=== PATIENT | male | born 1950 | race Caucasian/White ===

== ENCOUNTER 2020-04-07 18:20 | Emergency (ER) | payer MEDICARE ==
[~2020-04-07] VITALS: Ht 185.4 cm; Wt 117.3 kg
--- NOTE | 2020-04-07 18:34 | PHYS DOC ---
Past History Past Medical History: CAD, High Cholesterol, Heart Disease Past Surgical History: Angioplasty Past Surgical History STENT x 2 - 10 yrs ago General Adult EDM: Chief Complaint: CHEST PAIN HPI: HPI: ".. I had a pretty good day yesterday... Cutting brush but by the end of the day was having some discomfort in my chest... However today he is awake and with marked discomfort in my chest it is in the center and seems to radiate upwards. Is been going on now for about 15 minutes... It was after I sent cheesecake... At first I thought it might be reflux.... I did take some aspirin. I have had history of coronary artery disease in the past... And had 2 stents placed at [facility] about 10 years ago... And I felt it was probably related to my high cholesterol but I have not really followed up with anybody since then... Pain has been constant the last 20 minutes... Patient is a 69 year old male who presents with above hx and complaints of chest pain. Pain is localized in center chest. There is some radiation to upper chest. Patient rates pain as 8 out of 10. Patient has past medical history of hypertension, hypercholesterol, and has smoked tobacco on occasion- mainly cigars. No history of trauma. No history of pleuritic components to pain. Patient is nauseated with the pain. Patient did have episode of diaphoresis. Patient only follows with [facility] as a primary care. Has not followed with a school photographer since his 2 stents 10 years ago at [facility]. No recent travel. No severe ill contacts. No recent fever or chills. There is family history of cardiac disease both on grandmother's side and grandfather side. There is also a history of Parkinson's with grandfather. Patient does not smoke. Patient does not use alcohol. Patient has had episodes of reflux. No hx of dark stools. Review of Systems: Review of Systems: Constitutional: Denies fever or chills Eyes: Denies change in visual acuity HENT: Denies nasal congestion or sore throat Respiratory: Denies cough or shortness of breath Cardiovascular: Complains of central chest pain GI: Denies abdominal pain, nausea, vomiting, bloody stools or diarrhea : Denies dysuria Musculoskeletal: Denies back pain or joint pain Integument: Denies rash Neurologic: Denies headache, focal weakness or sensory changes Endocrine: Denies polyuria or polydipsia Lymphatic: Denies swollen glands Psychiatric: Denies depression or anxiety Family History: Family History: Coronary artery disease presentation in the 70s both sides of family Current Medications: Current Meds: See nursing for home meds Allergies: Allergies: Allergies Coded Allergies Type Severity Reaction Last Updated Verified No Known Drug Allergies 04/07/20 No Physical Exam: PE: Constitutional: Moderate acute distress, non-toxic appearance. [] HENT: Normocephalic, atraumatic, bilateral external ears normal, oropharynx moist, no oral exudates, nose normal. [] Eyes: PERRLA, EOMI, conjunctiva normal, no discharge. [] Neck: Normal range of motion, no tenderness, supple, no stridor. [] Cardiovascular:Heart rate regular rhythm, no murmur [. PMI slightly to the left Lungs & Thorax: Bilateral breath sounds equal apex on auscultation there are some bilateral basilar crackles Abdomen: Bowel sounds decreased , soft, no tenderness, no masses, no pulsatile masses. [] Skin: Warm, mild diaphoresis, no erythema, no rash. [] Back: No tenderness, no CVA tenderness. [] Extremities: No tenderness, no cyanosis, no clubbing, ROM intact, no edema. No cording appreciated Neurologic: Alert and oriented X 3, n moves all extremities on request, distal sensory,, no focal deficits noted. [] No cording appreciated. Psychologic: Affect anxious, judgement normal, mood normal. [] EKG: EKG: My interpretation EKG shows a sinus rhythm at 86 bpm. There are some findings anterior septal changes as well as ST contralateral changes. -EKG time 183 My interpretation of second EKG at 20.02 -shows a sinus rhythm at 92 bpm. Still there is a contour and now abnormality consistent with anterior septal changes. There was a change in lead placement in V1. But no significant change in over all morphology. This EKG was just completed prior to transfer to [facility]. Radiology/Procedures: Radiology/Procedures: [][address] [address] IMAGING REPORT Signed PATIENT: MIKE CARMICHAEL ACCOUNT: [id number] : 1950 LOCATION: ER AGE: 69 SEX: M EXAM STATUS: PRE ER ORD. PHYSICIAN: MYLA CHEEMA MD REASON: Chest pain PROCEDURE: PORTABLE CHEST 1V Exam: Chest one pain INDICATION: Chest pain TECHNIQUE: Frontal view of the chest Comparisons: None FINDINGS: The cardiomediastinal silhouette and pulmonary vessels are within normal limits. Hazy opacities lungs bilaterally. Trace bilateral pleural effusions. IMPRESSION: Findings likely related to pulmonary edema. Electronically signed by: Yasmany Maldonado MD (04/07/2020 6:53 PM) [facility] DICTATED AND SIGNED BY: YASMANY MALDONADO MD DATE: 04/07/201852 CC: MYLA CHEEMA MD ~MTH0 0 Heart Score: HEART Score for Chest Pain: HEART Score for Chest Pain Response (Comments) Value History Moderately Suspicious 1 ECG Nonspecific Repolarizatio 1 Age > 65 2 Risk Factors 1 or 2 Risk Factors 1 Troponin >3 x Normal Limit 2 Total 7 Risk Factors: Risk Factors: DM, Current or recent (<one month) smoker, HTN, HLP, family history of CAD, obesity. Risk Scores: Score 0 - 3: 2.5% MACE over next 6 weeks - Discharge Home Score 4 - 6: 20.3% MACE over next 6 weeks - Admit for Clinical Observation Score 7 - 10: 72.7% MACE over next 6 weeks - Early Invasive Strategies Course & Med Decision Making: Course & Med Decision Making Pertinent Labs and Imaging studies reviewed. (See chart for details) Discussed presentation, testing and tx. plan with Dr. Gallegos and Dr. Smith- to transfer to [facility]. Pt. accepted to transfer [facility] 1835 hrs. Still awaiting labs Still awaiting room 1950 hrs. Pt. reports marked decrease in pain by time pt. left to [facility]- Pt atmost 07/12 2019 hrs. Critical Care 60 min Impression 1. Acute [place] 2. Hx Elevated Cholesterol 3. History of coronary artery disease-angioplasty and stents x2--10 years ago 4. Elevated troponin 1.472 [] Dragon Disclaimer: Dragon Disclaimer: This electronic medical record was generated, in whole or in part, using a voice recognition dictation system. Dragon Disclaimer This chart was dictated in whole or in part using Voice Recognition software in a busy, high-work load, and often noisy Emergency Department environment. It may contain unintended and wholly unrecognized errors or omissions. Dragon Disclaimer This chart was dictated in whole or in part using Voice Recognition software in a busy, high-work load, and often noisy Emergency Department environment. It may contain unintended and wholly unrecognized errors or omissions. Dragon Disclaimer This chart was dictated in whole or in part using Voice Recognition software in a busy, high-work load, and often noisy Emergency Department environment. It may contain unintended and wholly unrecognized errors or omissions. MYLA CHEEMA MD Apr 07, 2020 18:34
[2020-04-07 18:38] VITALS: BP 149/110
[2020-04-07] MEDS ORDERED: IV RINGERS SOLUTION,LACTATED 1,000 ML IV SCH (18:45)
[2020-04-07] MEDS ORDERED: ENOXAPARIN ** NOTE DOSE ** SYRINGE SQ ONE (18:45)
[2020-04-07] MEDS ORDERED: NITROGLYCERIN OINT 1 GM PACKET. TP ONE (18:45)
--- NOTE | 2020-04-07 18:56 | RAD ---
Exam: Chest one pain INDICATION: Chest pain TECHNIQUE: Frontal view of the chest Comparisons: None FINDINGS: The cardiomediastinal silhouette and pulmonary vessels are within normal limits. Hazy opacities lungs bilaterally. Trace bilateral pleural effusions. IMPRESSION: Findings likely related to pulmonary edema. Electronically signed by: Yasmany Cardona MD (04/07/2020 6:53 PM) [facility]
[2020-04-07 18:59] LABS: BASO # 0.1 x10^3/uL (0.0-0.2); BASO % 2 % (0-3); EOS # 0.1 x10^3/uL (0.0-0.7); EOS % 1 % (0-3); HEMATOCRIT 46.6 % (39.0-53.0); HEMOGLOBIN 15.2 g/dL (13.0-17.5); LYMPH # 2.9 x10^3/uL (1.0-4.8); LYMPH % 29 % (24-48); MEAN CORPUSCULAR HEMOGLOBIN 29 pg (25-35); MEAN CORPUSCULAR HGB CONC 33 g/dL (31-37); MEAN CORPUSCULAR VOLUME 89 fL (79-100); MONO # 0.7 x10^3/uL (0.0-1.1); MONO % 7 % (0-9); NEUT # 6.3 x10^3uL (1.8-7.7); NEUT % 61 % (31-73); PLATELET COUNT 307 x10^3/uL (140-400); RED BLOOD COUNT 5.27 x10^6/uL (4.30-5.70); RED CELL DISTRIBUTION WIDTH 13.9 % (11.5-14.5); WHITE BLOOD COUNT 10.2 x10^3/uL (4.0-11.0)
[2020-04-07] MEDS ORDERED: ONDANSETRON PF 4 MG/2 ML VIAL. IVP ONE (20:15)
[2020-04-07] MEDS ORDERED: MORPHINE SULFATE 4 MG/ML DISP.SYRIN. IV ONE (20:15)
[2020-04-07 20:18] LABS: BARBITURATES NEG (NEG); BENZODIAZEPINES NEG (NEG); CANNABINOIDS NEG (NEG); COCAINE NEG (NEG); METHADONE NEG (NEG); OPIATES NEG (NEG); PHENCYCLIDINE NEG (NEG)
[2020-04-07 20:19] LABS: AMPHETAMINE/METHAMPHETAMINE NEG (NEG)
[2020-04-07 20:24] LABS: CLARITY,URINE CLEAR; COLOR,URINE YELLOW
[2020-04-07 20:25] LABS: BACTERIA,URINE 0 /HPF (0-FEW); BILIRUBIN,URINE NEG (NEG); GLUCOSE,URINE NEG (NEG); NITRITE,URINE NEG (NEG); RBC,URINE 0 /HPF (0-2); UROBILINOGEN,URINE 0.2 mg/dL (0.2 mg/dL); WBC,URINE 0 /HPF (0-4)
[2020-04-07 21:14] LABS: ANION GAP 12 (6-14); BLOOD UREA NITROGEN 19 mg/dL (8-26); CALCIUM 9.3 mg/dL (8.5-10.1); CARBON DIOXIDE 25 mmol/L (21-32); CHLORIDE 105 mmol/L (98-107); CREATININE 1.2 mg/dL (0.7-1.3); GFR 59.9; GLUCOSE 121 mg/dL (70-99); POTASSIUM 4.6 mmol/L (3.5-5.1); SODIUM 142 mmol/L (136-145)
[2020-04-07 21:27] LABS: ALBUMIN 3.8 g/dL (3.4-5.0); ALK PHOS 95 U/L (46-116); ALT (SGPT) 30 U/L (16-63); AST (SGOT) 47 U/L (15-37); DIRECT BILIRUBIN < 0.1 mg/dL (0.0-0.2); LIPASE 99 U/L (73-393); MAGNESIUM 2.2 mg/dL (1.8-2.4); TOTAL BILIRUBIN 0.4 mg/dL (0.2-1.0); TOTAL PROTEIN 8.1 g/dL (6.4-8.2)
[2020-04-08 11:20] LABS: THYROID STIM HORMONE (TSH) 4.012 uIU/mL (0.358-3.740)
--- NOTE | 2020-04-09 08:45 | EKG ---
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
== END 2020-04-07 20:20 | disposition short-term general hospital (02) ==
LOC: ER 18:20
DX: I21.9 Acute myocardial infarction, unspecified (principal); E78.00 Pure hypercholesterolemia, unspecified; I25.10 Atherosclerotic heart disease of native coronary artery without angina pectoris; R77.8 Other specified abnormalities of plasma proteins; I11.9 Hypertensive heart disease without heart failure; Z98.61 Coronary angioplasty status
CPT/HCPCS: 36415; 71045; 80048; 80061; 80076; 80307; 81001; 82550; 83690; 83735; 83880; 84443; 84484; 85025; 85379; 85610; 85730; 93005; 96361; 96372; 96374; 96375; 99291; J1650; J2270; J2405; J7120; 99285-25

== ENCOUNTER → 2020-09-11 | Outpatient (CLI) | payer MEDICARE ==
[2020-04-07 18:45] VITALS: BP 155/105
--- NOTE | 2020-09-11 12:21 | CARD ---
MR#: [id number] Date of Study: 09/11/2020 Ordering Physician: YESENIA ADAMS, Referring Physician: YESENIA ADAMS, Tech: [employer] [facility] APPROVED REPORT EXAM: Two-dimensional and M-mode echocardiogram with Doppler and color Doppler. Other Information Quality : Fair INDICATION Ischemic Cardiomyopathy 2D DIMENSIONS RVDd2.2 (2.9-3.5cm)Left Atrium(2D)4.1 (1.6-4.0cm) IVSd0.7 (0.7-1.1cm)Aortic Root(2D)3.2 (2.0-3.7cm) LVDd6.8 (3.9-5.9cm)LVOT Diameter2.4 (1.8-2.4cm) PWd0.7 (0.7-1.1cm)LVDs5.9 (2.5-4.0cm) FS (%) 13.3 %SV66.1 ml LVEF(%)27.8 (>50%) Aortic Valve AoV Peak Ramakrishna.147.7cm/sAoV VTI27.2cm AO Peak GR.8.7mmHgLVOT Peak Ramakrishna.107.1cm/s LVOT VTI 19.39cmAO Mean GR.5mmHg NICO (VMAX)3.48qn8TIM (VTI)3.16cm2 AI P 1/2 Ogsy391ia Mitral Valve MV E Xrtjmyui68.3cm/sMV DECEL VHES922og MV A Wkdeznjf24.9cm/sE/A Ratio1.7 Tricuspid Valve TR P. Mybupdtf566iz/sRAP IJQTRORK8exSa TR Peak Gr.87uxJxZOVK73lgVt Pulmonary Vein S1 Lyeawzjb61.7cm/sD2 Zoqtugrw58.6cm/s LEFT VENTRICLE The Left Ventricle is severely dilated. There is normal left ventricular wall thickness. Left ventric le systolic function is severely impaired. The Ejection Fraction is 20-25%. There is severe global hy pokinesis of the left ventricle. The mid to distal anterior wall, septum and apex are severely hypoki netic. Transmitral Doppler flow pattern is Grade II-pseudonormal filling dynamics. RIGHT VENTRICLE The right ventricle cavity is moderately dilated. The right ventricular systolic function is normal. ATRIA The left atrium is mildly dilated. The right atrium is mildly dilated. The interatrial septum is inta ct with no evidence for an atrial septal defect or patent foramen ovale as noted on 2-D or Doppler im aging. AORTIC VALVE The aortic valve is mildly thickened but opens well. Doppler and Color Flow revealed eccentric, mild aortic regurgitation. There is no significant aortic valvular stenosis. MITRAL VALVE The mitral valve is calcified but opens well. There is no evidence of mitral valve prolapse. There is no mitral valve stenosis. Doppler and Color-flow revealed mild mitral regurgitation. TRICUSPID VALVE The tricuspid valve is normal in structure and function. Doppler and Color Flow revealed mild tricusp id regurgitation. There is severe pulmonary hypertension. The PA pressure was estimated at 78 mmHg. T here is no tricuspid valve stenosis. PULMONIC VALVE The pulmonic valve is not well visualized. Doppler and Color Flow revealed no pulmonic valvular regur gitation. There is no pulmonic valvular stenosis. GREAT VESSELS The aortic root is normal in size. The ascending aorta is mildly dilated at 3.5 cm. The IVC is dilate d collapses >50% with inspiration. PERICARDIAL EFFUSION There is no evidence of significant pericardial effusion. Critical Notification Critical Value: No <Conclusion> Left ventricle systolic function is severely impaired. The Ejection Fraction is 20-25%. The Left Ventricle is severely dilated. Doppler and Color Flow revealed mild tricuspid regurgitation. There is severe pulmonary hypertension. The PA pressure was estimated at 78 mmHg. The ascending aorta is mildly dilated at 3.5 cm. Signed by : Chong Waters, Electronically Approved : 09/11/2020 12:20:54
== END ==
LOC: ECHO 10:28
PROVIDERS: ATTEND Internal Medicine Cardiovascular Disease
DX: I08.3 Combined rheumatic disorders of mitral, aortic and tricuspid valves (principal); I25.5 Ischemic cardiomyopathy
CPT/HCPCS: 93306